=== PATIENT | male | born 1970 | race Caucasian/White ===

== ENCOUNTER 2016-07-07 21:45 | Emergency (ER) | payer MEDICAID ==
[~2016-07-07] VITALS: Ht 172.7 cm; Wt 67.0 kg
[~2016-07-07 21:45] MED LIST: INSU100V13 SQ; INSU100V8 SQ; SERT50TA PO
[2016-07-07 21:47] VITALS: Ht 172.7 cm; Wt 67.0 kg
--- OUTSIDE RECORDS SUMMARY | 2016-07-07 21:49 | XMS REPORT ---
Author Roderick Barry Organization [employer] Address Unknown Phone Unavailable Care Team Providers Care Lime Spreader Name Role Phone Rodeirck Pozo CP Unavailable Allergies, Adverse Reactions, Alerts Substance Reaction Event Type N.K.D.A. Info Not Available Non Drug Allergy Problems Problem Type Condition Code Onset Dates Condition Status Assessment Hyperlipidemia, unspecified E78.5 Active Assessment Hearing loss in left ear H91.92 Active Assessment Essential (primary) hypertension I10 Active Assessment Encounter for immunization Z23 Active Problem Hearing loss in left ear H91.92 Active Problem Essential (primary) hypertension I10 Active Problem Type 2 diabetes mellitus without complications E11.9 Active Problem Major depressive disorder, single episode, unspecified F32.9 Active Assessment Type 2 diabetes mellitus without complications E11.9 Active Problem Hyperlipidemia, unspecified E78.5 Active Problem Other specified diabetes mellitus without complications E13.9 Active Medications Medication Code System Code Instructions Start Date End Date Status Dosage Aspirin EC [facility] [address]-30 81 MG Orally Once a day July 11, 2015 1 tablet Lisinopril [facility] [address]-12 2.5 MG Orally Once a day July 11, 2015 1 tablet Ventolin HFA [facility] [address]-81 108 (90 Base) MCG/ACT Inhalation every 6 hrs June 13, 2015 1 to 2 puffs as needed for cough/congestion NovoLog [facility] [address]-40 100 UNIT/ML Subcutaneous as directed 8 units at breakfast and dinner Lantus [facility] [address]-34 100 UNIT/ML Subcutaneous as directed 40 units am and pm Lantus [facility] [id number] 100 INJECT 40 UNITS IN THE MORNING AND EVENING SUBCUTANEOUSLY DIRECTED Insulin Syringe-Needle U-100 ND 0 29G 1 ML Four times a day with insulin Dx.E13.9 June 13, 2015 as directed Zoloft [facility] [address]-33 100 MG Orally Once a day 1 tablet Procedures Procedure Coding System Code Date Fluzone/Fluarix IIV4 Pfree (age 3yr & older) CPT-4 79724 Jan 30, 2016 ADMINISTRATION, 1ST IMMUNIZATION CPT-4 79790 Jan 30, 2016 OFFICE VISIT, EST-LOW COMPLEXITY (15 MIN.) CPT-4 57228 Jan 30, 2016 Vital Signs Date/Time: Jan 30, 2016 Temperature 97.8 F Height 71 in Weight 141.8 lbs Blood Pressure Diastolic 86 mm Hg Blood Pressure Systolic 122 mm Hg Cardiac Monitoring Heart Rate 85 /min BMI 19.77 Index Oximetry 98 % Respiratory Rate 16 /min Results No Known Results Immunizations Vaccine Administration Date Fluzone/Fluarix IIV4 Pfree (age 3yr & older) Jan 30, 2016 Summary Purpose [employer] Submission
--- OUTSIDE RECORDS SUMMARY | 2016-07-07 21:50 | XMS REPORT ---
Author Roderick Barry Organization [employer] Address Unknown Phone Unavailable Care Team Providers Care Manager Line Name Role Phone Roderick Pozo CP Unavailable Allergies, Adverse Reactions, Alerts Substance Reaction Event Type N.K.D.A. Info Not Available Non Drug Allergy Problems Problem Type Condition Code Onset Dates Condition Status Assessment Tinea corporis B35.4 Active Assessment Type 2 diabetes mellitus with hyperglycemia E11.65 Active Problem Type 2 diabetes mellitus without complications E11.9 Active Problem Hearing loss in left ear H91.92 Active Problem Type 2 diabetes mellitus with hyperglycemia E11.65 Active Problem Other specified diabetes mellitus without complications E13.9 Active Problem Major depressive disorder, single episode, unspecified F32.9 Active Problem Essential (primary) hypertension I10 Active Problem Hyperlipidemia, unspecified E78.5 Active Medications Medication Code System Code Instructions Start Date End Date Status Dosage NovoLog [facility] [address]-26 100 UNIT/ML Subcutaneous as directed 8 units at breakfast and dinner Lisinopril [facility] [address]-88 2.5 MG Orally Once a day July 11, 2015 1 tablet Aspirin EC [facility] [address]-00 81 MG Orally Once a day July 11, 2015 1 tablet Zoloft [facility] [address]-83 100 MG Orally Once a day 1 tablet Ventolin HFA [facility] [address]-72 108 (90 Base) MCG/ACT Inhalation every 6 hrs June 13, 2015 1 to 2 puffs as needed for cough/congestion Insulin Syringe-Needle U-100 ND 0 29G 1 ML Four times a day with insulin Dx.E13.9 June 13, 2015 as directed Lantus [facility] [id number] 100 INJECT 40 UNITS IN THE MORNING AND EVENING SUBCUTANEOUSLY DIRECTED Lantus [facility] [address]-84 100 UNIT/ML Subcutaneous as directed 40 units am and pm Clotrimazole [facility] [address]-24 1 % Externally Twice a day to rash on arm pits, feet, back. Feb 24, 2016 1 application to affected area Procedures Procedure Coding System Code Date OFFICE VISIT, EST-LOW COMPLEXITY (15 MIN.) CPT-4 40594 Feb 24, 2016 Vital Signs Date/Time: Feb 24, 2016 Temperature 97.8 F Height 71 in Weight 148.8 lbs Blood Pressure Diastolic 82 mm Hg Blood Pressure Systolic 134 mm Hg Cardiac Monitoring Heart Rate 83 /min BMI 20.75 Index Oximetry 99 % Respiratory Rate 16 /min Results No Known Results Summary Purpose [employer] Submission
--- OUTSIDE RECORDS SUMMARY | 2016-07-07 21:50 | XMS REPORT | Summary of Care ---
Author Author Lavelle Bardales M.D. Organization Unknown Address Unknown Phone Unavailable Care Team Providers Care Record Pressman Name Role Phone Lavelle Bardales M.D. Unavailable Unavailable Roderick Pozo Unavailable Unavailable Unavailable Unavailable Functional Status Name Dates Details Functional status health issues are not documented Status: Name Dates Details Cognitive status health issues are not documented Status: Problems Name Dates Details Diabetes (250.00, E11.9) Status: Active Cholesteatoma, left (385.30, H71.92) Status: Active Medications Name Dates Details NovoLOG 100 UNIT/ML Subcutaneous Solution 8 units before each meal and PRN * Start 06-Jul-2016 Active Lantus 100 UNIT/ML Subcutaneous Solution 40 units daily * Refills: 0 * Start 06-Jul-2016 Active Ciprofloxacin HCl - 0.3 % Ophthalmic Solution INSTILL 3 DROPS TO LEFT EAR 3 TIMES DAILY X 1 WEEK * Quantity: 1 Refills: 0 Lavelle Bardales M.D. * Start 06-Jul-2016 Active 2.5 ML Bottle Allergies and Adverse Reactions Name Dates Details No Known Allergies (Allergy) Status: Active Past Medical History Name Dates Details History of Stomach problems (536.9, K31.9) Status: Resolved Procedures Procedure Dates Details History of Cholecystectomy Procedures not documented Immunization Name Dates Details Immunizations not documented Family History Name Dates Details No significant family history Comments: Family History Status: Active Social History Name Dates Details - Status: Name Dates Details Smoker. current status unknown Vital Signs Date Test Result Details 06-Jul-2016 13:11 BP Systolic 111 mm[Hg] Status: Comments: Location: ; Position: BP Diastolic 80 mm[Hg] Status: Comments: Location: ; Position: Temperature 97.9 f Status: Comments: Method: Heart Rate 69 /min Status: Comments: Location: ; Physical Findings 20 Status: Comments: Respiration Height 71 in Status: Weight 151 lb Status: Body Mass Index Calculated 21.06 kg/m2 Status: Body Surface Area Calculated 1.87 m2 Status: Results Date Description Value Details Results not documented Plan of Care Name Dates Details Planned Observations Planned Goals not documented Interventions Provided Medication Changes* Ciprofloxacin HCl - 0.3 % Ophthalmic Solution - Start Instructions Name Dates Details Instructions not documented Encounters Appointment; Lavelle Bardales M.D. Encounter Diagnosis: Problem not documented On 06-Jul-2016 13:00
--- OUTSIDE RECORDS SUMMARY | 2016-07-07 21:50 | XMS REPORT | Summary of Care ---
Author Author Catia Galan, Lavelle Organization Unknown Address Unknown Phone Unavailable Care Team Providers Care Prosthetic Assistant Name Role Phone Lavelle Bardales M.D. Unavailable Unavailable Roderick Pozo Unavailable Unavailable Functional Status Name Dates Details Functional status health issues are not documented Status: Name Dates Details Cognitive status health issues are not documented Status: Problems Name Dates Details Diabetes (250.00, E11.9) Status: Active Medications Name Dates Details NovoLOG 100 UNIT/ML Subcutaneous Solution 8 units before each meal and PRN * Start 06-Jul-2016 Active Lantus 100 UNIT/ML Subcutaneous Solution 40 units daily * Refills: 0 * Start 06-Jul-2016 Active Allergies and Adverse Reactions Name Dates Details [...] Details Planned Observations Planned Goals not documented Planned Encounters Appointment; Provider: Leisa Carbajal M.A.|[place] On 06-Jul-2016 13:15 Instructions Name Dates Details Instructions not documented Encounters Appointment; Lavelle Bardales M.D. Encounter Diagnosis: Problem not documented On 06-Jul-2016 13:00"
--- OUTSIDE RECORDS SUMMARY | 2016-07-07 21:50 | XMS REPORT | Summary of Care ---
Author Author Preston Carbajal M.A., Jill A Organization Unknown Address [address], [place] [id number] Phone Unavailable Care Team Providers Care Inseminator Name Role Phone Preston Carbajal M.A., A Unavailable Unavailable Lavelle Bardales M.D. Unavailable Unavailable Roderick Pozo [...] Details Planned Observations Planned Goals not documented Instructions Name Dates Details Instructions not documented Encounters Appointment; Lavelle Bardales M.D. Encounter Diagnosis: Problem not documented On 06-Jul-2016 13:00
--- OUTSIDE RECORDS SUMMARY | 2016-07-07 21:50 | XMS REPORT ---
Author Author Roderick Pozo Organization [employer] Address Unknown Phone Unavailable Care Team Providers Care Wave Soldering Machine Operator Name Role Phone Roderick Pozo CP Unavailable Allergies, Adverse Reactions, Alerts Substance Reaction Event Type N.K.D.A. Info Not Available Non Drug Allergy Problems Problem Type Condition Code Onset Dates Condition Status Assessment Major depressive disorder, single episode, unspecified F32.9 Active Assessment Allergic rhinitis, unspecified J30.9 Active Problem Major depressive disorder, single episode, unspecified F32.9 Active Assessment Type 2 diabetes mellitus without complications E11.9 Active Problem Other specified diabetes mellitus without complications E13.9 Active Assessment Anemia, unspecified D64.9 Active Assessment Proteinuria, unspecified R80.9 Active Assessment Essential (primary) hypertension I10 Active Assessment Unspecified contact dermatitis, unspecified cause L25.9 Active Medications Medication Code System Code Instructions Start Date End Date Status Dosage Zyrtec Allergy [facility] [address]-55 10 MG Orally Once a day June 13, 2015 September 11, 2015 1 tablet NovoLog [facility] [address]-80 100 UNIT/ML Subcutaneous as directed 8 units at breakfast and dinner Lisinopril [facility] [address]-55 2.5 MG Orally Once a day July 11, 2015 1 tablet Zoloft [facility] [address]-45 100 MG Orally Once a day 1 tablet Ventolin HFA [facility] [address]-47 108 (90 Base) MCG/ACT Inhalation every 6 hrs June 13, 2015 1 to 2 puffs as needed for cough/congestion Lantus [facility] [address]-03 100 UNIT/ML Subcutaneous as directed 40 units am and pm Insulin Syringe-Needle U-100 ND 0 29G 1 ML Four times a day with insulin Dx.E13.9 June 13, 2015 as directed Aspirin EC [facility] [address]-43 81 MG Orally Once a day July 11, 2015 1 tablet Tessalon Perles [facility] [address]-39 100 MG Orally every 8 hours June 13, 2015 July 11, 2015 1 to 2 capsules as needed for cough/congestion Procedures Procedure Coding System Code Date OFFICE VISIT, EST-MOD. COMPLEXITY (25 MIN) CPT-4 62453 July 11, 2015 Vital Signs Date/Time: July 11, 2015 BMI 20.15 Index Height 71 in Weight 144.5 lbs Respiratory Rate 16 /min Blood Pressure Diastolic 62 mm Hg Blood Pressure Systolic 118 mm Hg Cardiac Monitoring Heart Rate 84 /min Temperature 98.0 F Oximetry 97 % Results No Known Results Summary Purpose [employer] Submission
--- OUTSIDE RECORDS SUMMARY | 2016-07-07 21:50 | XMS REPORT ---
Author Roderick Barry Organization [employer] Address Unknown Phone Unavailable Care Team Providers Care Sheet Metal Lay Out Worker Name Role Phone Roderick Pozo CP Unavailable Allergies No Known Allergies Problems Problem Type Condition Code Onset Dates Condition Status Assessment Type 2 diabetes mellitus without complications E11.9 Active Assessment Essential (primary) hypertension I10 Active Problem Type [...] Instructions Start Date End Date Status Dosage Lantus [facility] 72768210161 100 INJECT 40 UNITS IN THE MORNING AND EVENING SUBCUTANEOUSLY DIRECTED Insulin Syringe-Needle U-100 NDC 0 29G 1 ML Four times a day with insulin Dx.E13.9 June 13, 2015 as directed Lisinopril [facility] [address]-10 2.5 MG Orally Once a day July 11, 2015 [address] Vent[address]FA [facility] [address]-70 108 (90 Base) MCG/ACT Inhalation every 6 hrs June 13, 2015 1 to 2 puffs as needed for cough/congestion Zoloft [facility] [address]-97 100 MG Orally Once a day [address] [facility] [address]-97 100 UNIT/ML Subcutaneous as directed 40 units am and pm Aspirin EC [facility] [address]-20 81 MG Orally Once a day July 11, [address] [facility] [address]-37 100 UNIT/ML Subcutaneous as directed 8 units at breakfast and dinner Clotrimazole [facility] [address]-58 1 % Externally Twice a day to rash on arm pits, feet, back. Feb 24, 2016 1 application to affected area Procedures Procedure Coding System Code Date COMPREHENSIVE METABOLIC PANEL CPT-4 14153 Feb 24, 2016 LIPID PANEL CPT-4 56064 Feb 24, 2016 COMPLETE CBC W/AUTO DIFF WBC CPT-4 43529 Feb 24, 2016 HEMOGLOBIN A1C, IN HOUSE CPT-4 81052 Feb 24, 2016 TSH CPT-4 36369 Feb 24, 2016 URINALYSIS WITH MICROSCOPIC CPT-4 69286 Feb 24, 2016 MICROALBUMIN- MICRO ALB/CREAT RATIO CPT-4 16785 Feb 24, 2016 Results Name Result Date Reference Range Unit Abnormality Flag Non-HDL Cholesterol ----Non-HDL Cholesterol 102 11233011 0-159 mg/dL CBC With Platelet and Differential ----Absolute Monocytes 0.72 08359589 0.30-1.00 10*3 ----MCV 87.5 39230134 82.0-99.0 fL ----HCT 38.4 83179207 42.0-52.0 % L ----Absolute Lymphocytes 2.77 84595370 0.80-3.30 10*3 ----MCHC 34.6 78780421 32.0-36.0 g/dL ----Absolute Neutrophils 7.23 57506370 1.90-7.00 10*3 H ----MCH 30.3 09400874 27.0-32.0 pg ----Immature Granulocytes 0.4 21154173 0.0-1.0 % ----Lymphocytes 25 61695009 20-46 % ----WBC 11.0 93136062 4.8-10.8 K/uL H ----Neutrophils 66 66166452 51-75 % ----Absolute Basophils 0.04 33573901 0.00-0.20 10*3 ----HGB 13.3 08779102 14.0-18.0 g/dL L ----Absolute Eosinophils 0.16 13124063 0.00-0.50 10*3 ----RBC 4.39 31397550 4.60-6.20 10*6/uL L ----Basophils 0 82295604 0-2 % ----Eosinophils 2 05581623 0-4 % ----Platelet Count 313 82014185 150-400 K/uL ----Monocytes 7 48769716 4-11 % ----RDW 13.0 14084648 11.5-14.5 % ----MPV 10.9 65660213 8.8-14.8 fL In House HB A1c ----Hemoglobin A1c 9.0 48821742 eGFR ----eGFR >60 47241401 >60 mL/min Urinalysis with Microscopic ----Glucose, Urine Negative 06165888 Negative ----Ketones Negative 94238452 Negative ----Epithelial Cells 0-2 13321007 /HPF ----Appearance Clear 47613212 ----WBC, Urine 0-2 46200297 0-4 /HPF ----Color Yellow 61557006 ----Specific [place] 1.015 57061563 1.003-1.030 ----Nitrites Negative 90065203 Negative ----RBC, Urine 0-4 67173480 0-4 /HPF ----Bilirubin Negative 75598693 Negative ----Leukocyte Esterase Negative 31967941 Negative ----Blood Negative 05473152 Negative ----Urobilinogen 1.0 03407721 <1.0 mg/dL ----Protein Negative 30031649 Negative ----pH 5.5 27907125 5.0-8.0 TSH ----TSH 1.02 14582548 0.35-4.94 uIU/mL Micro Albumin/Creatinine Ratio, Urine ----Creatinine mg/dL, Urine 55 11311209 mg/dL ----Albumin mg/dL, Urine 6.2 36213694 0.0-1.7 mg/dL H ----Alb/Creat Ratio, Urine 112.7 83062470 0.0-29.0 mg/g H Comprehensive Metabolic Panel (CMP) ----CO2 26 53036092 23-31 mEq/L ----Chloride 104 84515198 99-111 mEq/L ----Potassium 5.3 97170383 3.5-5.2 mEq/L H ----Sodium 140 55885530 135-144 mEq/L ----Calcium 9.5 72825007 8.9-10.5 mg/dL ----Creatinine 0.99 90270467 0.72-1.25 mg/dL ----BUN 16 89668812 9-21 mg/dL ----Glucose 136 14163334 70-99 mg/dL H ----AST (SGOT) 30 93479988 5-34 U/L ----Anion Gap 10 20160224 3-20 ----Globulin 2.5 55989897 1.8-4.0 g/dL ----Bilirubin Total 0.4 35483979 0.2-1.2 mg/dL ----Alkaline Phosphatase 89 48493352 40-150 U/L ----Protein 6.6 68242670 6.1-7.7 g/dL ----ALT (SGPT) 37 20160224 0-55 U/L ----Albumin 4.1 57180864 3.5-5.0 g/dL Lipid Panel ----HDL Cholesterol 52 27363097 40-84 mg/dL ----Triglycerides 247 18348506 0-149 mg/dL H ----VLDL Cholesterol 49 93431007 0-28 mg/dL H ----LDL Cholesterol 53 85193423 0-130 mg/dL ----Cardiac Risk 3.0 34014634 0.0-5.7 ----Cholesterol 154 21058312 0-199 mg/dL Summary Purpose [employer]ClinicalWorks Submission
--- OUTSIDE RECORDS SUMMARY | 2016-07-07 21:50 | XMS REPORT ---
Author Author Roderick Pozo Organization [employer] Address Unknown Phone Unavailable Care Team Providers Care Touch Up Worker Name Role Phone Roderick Pozo CP Unavailable Allergies No Known Allergies Problems Problem Type Condition Code Onset Dates Condition Status Problem Type 2 diabetes mellitus without complications E11.9 Active Problem Hearing loss in left ear H91.92 Active Problem Type 2 diabetes mellitus with hyperglycemia E11.65 Active Problem Other specified diabetes mellitus without complications E13.9 Active Problem Major depressive disorder, single episode, unspecified F32.9 Active Problem Essential (primary) hypertension I10 Active Problem Hyperlipidemia, unspecified E78.5 Active Medications No Known Medications Results No Known Results Summary Purpose [employer] Submission
--- OUTSIDE RECORDS SUMMARY | 2016-07-07 21:50 | XMS REPORT ---
Author Author Roderick Pozo Organization [employer] Address Unknown Phone Unavailable Care Team Providers Care Director Of Managed Services Name Role Phone Roderick Pozo CP Unavailable Allergies, Adverse Reactions, Alerts Substance Reaction Event Type N.K.D.A. Info Not Available Non Drug Allergy Problems Problem Type Condition ICD-9 Code Onset Dates Condition Status Problem Depressive disorder, not elsewhere classified 311 Active Assessment Diabetes Mellitus Type 2, not stated as uncontrolled 250.00 Active Problem Diabetes Mellitus Type 2, not stated as uncontrolled 250.00 Active Assessment Depressive disorder, not elsewhere classified 311 Active Assessment Unspecified otorrhea 388.60 Active Assessment Diarrhea 787.91 Active Medications Medication Code System Code Instructions Start Date End Date Status Dosage Lantus [facility] [address]-83 100 UNIT/ML Subcutaneous as directed 40 units am and pm NovoLog [facility] [address]-35 100 UNIT/ML Subcutaneous as directed 8 units at breakfast and dinner Zoloft [facility] [address]-52 100 MG Orally Once a day 1 tablet Procedures Procedure Coding System Code Date OFFICE VISIT, ELEMENTARY ASSISTANT TEACHER-LOW COMPLEXITY (30 MIN.) CPT-4 70747 Dec 13, 2014 Vital Signs Date/Time: Dec 13, 2014 Height 71 in Weight 142.4 lbs Temperature 97.9 F Blood Pressure Diastolic 62 mm Hg Blood Pressure Systolic 110 mm Hg Cardiac Monitoring Heart Rate 80 /min BMI 19.86 Index Oximetry 98 % Respiratory Rate 16 /min Results No Known Results Summary Purpose [employer]Works Submission
[2016-07-07] MEDS ORDERED: HYDROCORTISONE 1% OINT 28 GM TOP ONE (22:15)
[2016-07-07] MEDS ORDERED: DEXAMETHASONE 4mg/ml - 1ml INJECTION IM ONE (22:15)
--- NOTE | 2016-07-07 22:17 | ERPDOC ---
Departure Disposition Decision Date: Jul 07, 2016 Disposition Decision Time: 22:21 Disposition: 01 DISCHARGED HOME, SELF-CARE Impression Impression Impression: Primary Impression: Contact dermatitis Contact dermatitis type: irritant Contact dermatitis trigger: unspecified trigger Qualified Codes: L24.9 - Irritant contact dermatitis, unspecified cause Severity: Moderate Condition: Improved Seen By: Physician only Referrals: Asmita CHAVEZ MD (PCP) Problems/Meds/Labs Reviewed?: Yes Medications reviewed and manag: Yes Additional Instructions: Wash will and once daily, then apply 1% hydrocortisone cream to the wound and cover with a dry gauze bandage 3 times daily until healed. [facility] first thing in the morning to schedule follow-up appointment later this week or early next week for recheck of the rash Follow up care ordered?: Yes Mental Status: Alert HPI - Skin General General Stated Complaint: BOTH LEGS RASH Time Seen by Provider: 22:09 Source: patient Exam Limitations: no limitations HPI - Skin General Initial Comments For the past 3 days patient has noticed a dry itchy rash to the inside posterior portions of both ankles. Patient has no idea what he might have gotten into, but states that is very pruritic. Patient has not tried any medications, has not seen his primary care physician, and decided to come in after work tonight due to increased itching. Occurred At: home Onset: Rapid Severity: moderate Location: extremities Associated Symptoms: rash, DENIES: blisters, change in skin texture, edema, fever, flushing, headache, hives, jaundice, malaise, nasal congestion, numbness , pallor, paresthesia, petechiae, sore throat, swelling/mass/lumps, tingling Hx of Similar Symptoms: No Past History Past Medical History Metabolic: diabetes Surgical History Denies Surgeries Vaccines Hx Tetanus, Diptheria, Pertuss: Yes (2012) Review of Systems Constitutional Constitutional: DENIES: appetite decrease, appetite increase, chills, dizziness , fever, weakness ENMT Ears: DENIES: pain Hearing: DENIES: hearing loss, tinnitus Balance: DENIES: vertigo Mouth/Throat: DENIES: change in swallowing, change in voice, hoarsness, painful swallowing, sore throat Cardiovascular Cardiac: DENIES: chest pain, dyspnea on exertion Rhythm/Rate: DENIES: irregular beat, palpitations, tachycardia Vascular: DENIES: pedal edema Pulmonary Respiratory: DENIES: cough, dyspnea, pleuritic chest pain GI Upper Abdomen: DENIES: dysphagia, heartburn/indigestion, nausea, pain, vomiting Lower Abdomen: DENIES: blood in stool, constipation, diarrhea, pain General: DENIES: burning, dysuria, frequency, pain, urgency Musculoskeletal General: DENIES: cramps, joint pain, joint swelling, pain, weakness Integumentary Skin: rash, DENIES: sores Neurological General: DENIES: headache, numbness, tingling, vertigo, weakness Psychiatric Psychiatric: DENIES: anxiety, depression, nervousness Physical Exam General General Nourishment: well nourished, well developed, appears stated age, no acute distress, thin General Body Habitus: well groomed Vitals and Pain Weight: Kilograms: Height (feet): 5 Height (inches): 11 Triage Pain Scale: RN VS reviewed by Provider: Yes Normal Exams: Head: Normocephalic w/o trauma Eyes: Pupils are PERRLA w/ EOMI, No scleral icterus, irritation, or foreign bodies noted ENMT: No facial trauma, nasal exudates, pharyngeal erythema, or exudates are noted Neck: Full range of motion, without adenopathy, JVD, bruits or thyromegaly Chest/Resp: Clear all mckeon, with good airflow, and symmetry bilaterally CV: Regular rate and rhythm, without murmur or gallop, Pulses 2+ all extremities, capillary refill, <2 seconds all ext., no pedal edema noted Abdomen: Bowel sounds positive, soft, non-tender, non-distended, no hepatosplenomegaly, masses or bruits noted Lymphatic: No lymphadenopathy, or lymphedema noted Musculoskeletal: No tenderness, or deformity noted, good range of motion, all extremities Neurologic: Patient is alert, and oriented, cranial nerves, motor/sensory/ cerebellar, exams w/o gross deficits, to observation Psychiatric: Patient exhibits, appropriate attention, emotion and affect Integumentary (brief) Integumentary Brief: FOUND: dry, pink, rash (Chin has 2 large patches to the medial posterior portion of the distal legs bilaterally. Patches are approximately 3 x 5 cm, with excoriation and lichenification. No bruising, no swelling, minimal erythema. There are no pustules, and no vesicles. Lesions do not have any crust or exudate.), warm Progress Results/Orders Orders Procedure Category Date Status Time Dexamethasone Inj PHA 07/07/16 Transmitted (Decadron) 22:15 Diphenhydramine PHA 07/07/16 Transmitted (Benadryl) 22:15 Hydrocortisone 1% PHA 07/07/16 Transmitted Oint (Cortizone-10 Oin 22:15 Dressing (Ed) EDM 07/07/16 Transmitted 22:12 Progress Progress Patient appears to have some form of contact dermatitis with chronic pruritus and lichenification. Given dexamethasone 8 mg IM, Benadryl 50 mg, and 1% hydrocortisone cream to apply to the wound 3 times daily. OSMAN PATEL MD Jul 07, 2016 22:17
[2016-07-07 22:55] VITALS: BP 135/84; PULSE 88; RESP 16; TEMP 98.8; O2SAT 97
== END 2016-07-07 22:50 | disposition home or self-care (01) ==
LOC: ED 21:45
DX: L24.9 Irritant contact dermatitis, unspecified cause (principal)
CPT/HCPCS: 96372; 99283; J1100

== ENCOUNTER → 2016-08-03 | Outpatient (CLI) | payer MEDICAID ==
--- NOTE | 2016-08-04 10:32 | DI ---
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 Dedicated bilateral axial and coronal 2-dimensional reformatted images were produced. Automated Exposure Control and Iterative Reconstruction dose reducing techniques were utilized. Findings: RIGHT TEMPORAL BONE: No fractures are evident. The external auditory canal is patent. The middle ear cavity demonstrates no significant mucosal thickening or fluid. The ossicular chain is intact. The cochlea and bony labyrinth are unremarkable. The internal auditory canal, facial nerve canal, and vestibular aqueduct are unremarkable. Mastoid air cells are clear. LEFT TEMPORAL BONE: There is a soft tissue mass demonstrated within the left middle ear cavity with some aerated regions noted along the lateral tympanic wall. There are no definite erosions with special attention to the lateral tympanic wall, lateral semicircular canal, scutum, or ossicles. No fractures are evident. The external auditory canal is patent. The cochlea and bony labyrinth are unremarkable. The internal auditory canal, facial nerve canal, and vestibular aqueduct are unremarkable. Impression: 1. Suggested soft tissue density within the left middle ear cavity demonstrated aerated regions along the lateral tympanic wall. No erosive changes are demonstrated with special attention to the lateral tympanic wall, lateral semicircular canal, scutum, or ossicles. Differential considerations include cholesteatoma of versus chronic mastoiditis. .
== END ==
LOC: IMA 15:24
PROVIDERS: ATTEND Otolaryngology Otology & Neurotology
DX: H93.92 Unspecified disorder of left ear (principal); H71.22 Cholesteatoma of mastoid, left ear